=== PATIENT | male | born 1955 | race Caucasian/White ===

== ENCOUNTER 2016-09-08 14:46 | Emergency (ER) | payer MEDICARE ==
[~2016-09-08] VITALS: Ht 172.7 cm; Wt 81.4 kg
[~2016-09-08 14:46] MED LIST: ASPI-496 PO; ASPI-621 PO; DIGO125T PO; DIGO125T76 PO; DIGO250T PO; FAMO20TA7 PO; FURO20TA3 PO; FURO40TA6 PO; LISI-167 PO; METF500T4 PO; METO-99 PO; METO50TA82 PO; POTA8TAB PO; POTASSIUM; SIMV20TA3 PO; WARF10TA PO; WARF5TAB PO; WARF5TAB7 PO; WARF5TAB7 PO-COUM; WARF7.5T PO; lopressor PO
[2016-09-08] MEDS ORDERED: MORPHINE SULFATE 4 MG/ML, 1ML IVPush PRN (15:30)
[2016-09-08] MEDS ORDERED: SODIUM CHLORIDE FLUSH 10ML SYR IVF ONE (15:30)
[2016-09-08] MEDS ORDERED: ONDANSETRON 2MG/ML, 2ML IVPush ONE (15:30)
[2016-09-08 16:52] VITALS: BP 120/79
== END 2016-09-08 16:55 | disposition home or self-care (01) ==
LOC: ED 16:49
DX: K40.91 Unilateral inguinal hernia, without obstruction or gangrene, recurrent (principal); I11.0 Hypertensive heart disease with heart failure; I50.9 Heart failure, unspecified; E78.00 Pure hypercholesterolemia, unspecified; I25.10 Atherosclerotic heart disease of native coronary artery without angina pectoris; F17.200 Nicotine dependence, unspecified, uncomplicated
CPT/HCPCS: 76857; 99284

== ENCOUNTER 2017-02-25 10:18 | Inpatient (IN) | payer MEDICARE ==
[~2017-02-25] VITALS: Ht 172.7 cm; Wt 86.4 kg
[2017-02-25] MEDS ORDERED: WARF7.5T6 PO (10:41)
[2017-02-25] MEDS ORDERED: DIGO125T PO (10:42)
[2017-02-25] MEDS ORDERED: SODIUM CHLORIDE 0.9% 1,000 ML IV ONE ×2 (10:43→13:05)
[2017-02-25] MEDS ORDERED: FURO-92 PO (10:43)
[2017-02-25] MEDS ORDERED: SODIUM CHLORIDE 0.9% 1,000ML IVBOLUS ONE (11:00)
[2017-02-25] MEDS ORDERED: SODIUM CHLORIDE FLUSH 10ML SYR IVF ONE (11:00)
[2017-02-25 11:04] LABS: HEMATOCRIT 34.6 % (39.2-51.8); HEMOGLOBIN 11.7 g/dL (13.7-18.0)
[2017-02-25 11:17] LABS: BLOOD UREA NITROGEN 26 mg/dL (7-18)
[2017-02-25 11:20] LABS: ASPARTATE AMINO TRANSFERASE 13 U/L (15-37)
[2017-02-25 11:51] VITALS: BP 125/70
[2017-02-25 12:06] VITALS: BP 121/67
[2017-02-25 12:15] VITALS: BP 121/68
[2017-02-25] MEDS ORDERED: BISACODYL 10 MG SUPP PR PRN ×2 (13:30→20:30)
[2017-02-25] MEDS ORDERED: POLYETHYLENE GLYCOL 17 GM PACKET PO PRN ×2 (13:30→20:30)
[2017-02-25] MEDS ORDERED: LABETALOL 5MG/ML, 20ML IVPush PRN ×2 (13:30→20:30)
[2017-02-25] MEDS ORDERED: ONDANSETRON 2MG/ML, 2ML IVPush PRN ×2 (13:30→20:30)
[2017-02-25] MEDS ORDERED: ONDANSETRON ODT 4 MG PO PRN ×2 (13:30→20:30)
[2017-02-25] MEDS ORDERED: ACETAMINOPHEN 325 MG TABLET PO PRN ×2 (13:30→20:30)
[2017-02-25] MEDS ORDERED: SODIUM CHLORIDE FLUSH 10ML SYR IVF PRN (13:30)
[2017-02-25] MEDS ORDERED: morphine SULFATE 10 MG/ML, 1ML IVPush PRN (13:30)
[2017-02-25 15:30] VITALS: BP 153/82
[2017-02-25] MEDS ORDERED: GOLYTELY 4,000ML ORAL.SOL PO ONE (18:00)
[2017-02-25] MEDS: PANTOPRAZOLE 40 MG IV IVPush SCH (18:03)
[2017-02-25 18:29] VITALS: BP 110/64
[2017-02-25] MEDS: DIGOXIN 0.125 MG TABLET PO SCH (19:05)
[2017-02-25 19:08] LABS: HEMATOCRIT 32.5 % (39.2-51.8); HEMOGLOBIN 10.9 g/dL (13.7-18.0)
[2017-02-25] MEDS ORDERED: DOCUSATE 100 MG CAPSULE PO PRN ×2 (20:30→21:00)
[2017-02-26] VITALS (7 sets, daily range): BP systolic 112–134; BP diastolic 66–81
[2017-02-26 03:21] LABS: HEMATOCRIT 32.4 % (39.2-51.8); HEMOGLOBIN 10.8 g/dL (13.7-18.0); WHITE BLOOD COUNT 7.4 x10^3/uL (3.4-10)
[2017-02-26 03:34] LABS: ASPARTATE AMINO TRANSFERASE 12 U/L (15-37); BLOOD UREA NITROGEN 19 mg/dL (7-18)
[2017-02-26] MEDS: PANTOPRAZOLE 40 MG IV IVPush SCH ×2 (05:38→18:19)
[2017-02-26] MEDS ORDERED: FENTANYL PF 100 MCG/2ML ONE ×2 (08:53)
[2017-02-26] MEDS ORDERED: MIDAZOLAM 1 MG/ML, 5ML ONE (08:53)
[2017-02-26] MEDS ORDERED: FUROSEMIDE 40 MG TABLET PO SCH (09:00)
[2017-02-26] MEDS ORDERED: METOPROLOL TARTRATE 100 MG TABLET PO SCH ×2 (09:00)
[2017-02-26] MEDS: FUROSEMIDE 40 MG TABLET PO SCH (10:25)
[2017-02-26 11:10] LABS: HEMATOCRIT 32.8 % (39.2-51.8); HEMOGLOBIN 11.1 g/dL (13.7-18.0)
[2017-02-26] MEDS ORDERED: GOLYTELY 4,000ML ORAL.SOL PO ONE (18:00)
[2017-02-26] MEDS: DIGOXIN 0.125 MG TABLET PO SCH (18:19)
[2017-02-26 19:04] LABS: HEMATOCRIT 33.4 % (39.2-51.8); HEMOGLOBIN 11.2 g/dL (13.7-18.0)
[2017-02-27 02:31] VITALS: BP 109/59
[2017-02-27] MEDS: PANTOPRAZOLE 40 MG IV IVPush SCH ×2 (04:51→17:55)
[2017-02-27 06:03] LABS: HEMATOCRIT 31.7 % (39.2-51.8); HEMOGLOBIN 10.9 g/dL (13.7-18.0); WHITE BLOOD COUNT 5.9 x10^3/uL (3.4-10)
[2017-02-27 08:00] VITALS: BP 134/73
[2017-02-27] MEDS: METOPROLOL TARTRATE 100 MG TABLET PO SCH (08:13)
[2017-02-27] MEDS: FUROSEMIDE 40 MG TABLET PO SCH (08:19)
[2017-02-27] MEDS ORDERED: FENTANYL PF 100 MCG/2ML ONE (08:33)
[2017-02-27] MEDS ORDERED: MIDAZOLAM 1 MG/ML, 5ML ONE (08:33)
[2017-02-27 10:25] VITALS: BP 113/68
[2017-02-27] MEDS: DIGOXIN 0.125 MG TABLET PO SCH (17:55)
[2017-02-27 19:05] VITALS: BP 125/73
[2017-02-28 01:23] VITALS: BP 133/86
[2017-02-28] MEDS: PANTOPRAZOLE 40 MG IV IVPush SCH (05:29)
[2017-02-28 08:31] VITALS: BP 113/67
[2017-02-28] MEDS: FUROSEMIDE 40 MG TABLET PO SCH (09:00)
[2017-02-28] MEDS: METOPROLOL TARTRATE 100 MG TABLET PO SCH (09:00)
[2017-02-28] MEDS ORDERED: WARF10TA PO-COUM (13:09)
[2017-02-28 15:47] VITALS: BP 120/72
[2017-02-28] MEDS ORDERED: WARFARIN 10 MG TABLET PO-COUM ONE (18:00)
== END 2017-02-28 17:00 | disposition home or self-care (01) | DRG 378 ==
LOC: ED 11:22 → EDIP 13:05 → 4WST 14:25 → DCLOUNGE 02-28 17:00
PROVIDERS: ADMIT Hospitalist; ATTEND Hospitalist
PROC: 30233L1 Transfusion of Nonautologous Fresh Plasma into Peripheral Vein, Percutaneous Approach (ICD-10-PCS; 2017-02-25)
PROC: 0DJD8ZZ Inspection of Lower Intestinal Tract, Via Natural or Artificial Opening Endoscopic (ICD-10-PCS; principal; 2017-02-26 09:00)
PROC: 0DBH8ZZ Excision of Cecum, Via Natural or Artificial Opening Endoscopic (ICD-10-PCS; 2017-02-27)
PROC: 0DBL8ZZ Excision of Transverse Colon, Via Natural or Artificial Opening Endoscopic (ICD-10-PCS; 2017-02-27)
PROC: 0DBN8ZZ Excision of Sigmoid Colon, Via Natural or Artificial Opening Endoscopic (ICD-10-PCS; 2017-02-27)
PROC: 0DBM8ZZ Excision of Descending Colon, Via Natural or Artificial Opening Endoscopic (ICD-10-PCS; 2017-02-27)
DX: K92.2 Gastrointestinal hemorrhage, unspecified (principal); E44.0 Moderate protein-calorie malnutrition; D68.69 Other thrombophilia; I13.0 Hypertensive heart and chronic kidney disease with heart failure and stage 1 through stage 4 chronic kidney disease, or unspecified chronic kidney disease; I48.2 Chronic atrial fibrillation; I95.9 Hypotension, unspecified; I50.42 Chronic combined systolic (congestive) and diastolic (congestive) heart failure; I48.92 Unspecified atrial flutter; E78.5 Hyperlipidemia, unspecified; E78.00 Pure hypercholesterolemia, unspecified; G25.81 Restless legs syndrome; K40.90 Unilateral inguinal hernia, without obstruction or gangrene, not specified as recurrent; Z66 Do not resuscitate; D64.9 Anemia, unspecified; R79.89 Other specified abnormal findings of blood chemistry; D12.4 Benign neoplasm of descending colon; F15.90 Other stimulant use, unspecified, uncomplicated; N18.9 Chronic kidney disease, unspecified; I25.10 Atherosclerotic heart disease of native coronary artery without angina pectoris; I34.0 Nonrheumatic mitral (valve) insufficiency; K57.90 Diverticulosis of intestine, part unspecified, without perforation or abscess without bleeding; T45.515A Adverse effect of anticoagulants, initial encounter; Y92.89 Other specified places as the place of occurrence of the external cause; Z79.82 Long term (current) use of aspirin; Z68.29 Body mass index [BMI] 29.0-29.9, adult; Z79.01 Long term (current) use of anticoagulants; D12.0 Benign neoplasm of cecum; K63.5 Polyp of colon
CPT/HCPCS: 36415; 71010; 80053; 80162; 83605; 85014; 85018; 85025; 85610; 85730; 86850; 86900; 88305; 93005; 99152; 99153; J2250; J3010; A4648; C9113; J7030; P9017

== ENCOUNTER 2017-04-25 20:33 | Inpatient (IN) | payer MEDICARE ==
[~2017-04-25] VITALS: Ht 175.3 cm; Wt 73.6 kg
[~2017-04-25 20:33] MED LIST changes: +FURO-92 PO; +WARF10TA PO-COUM; +WARF7.5T6 PO
[2017-04-25 21:35] LABS: BASOPHILS # (AUTO) 0.01 x10^3/uL (0-0.1); BASOPHILS % (AUTO) 0 % (0-1); EOSINOPHILS # (AUTO) 0.07 x10^3/uL (0-0.4); EOSINOPHILS % (AUTO) 1 % (1-7); LYMPHOCYTES # (AUTO) 0.41 x10^3/uL (1-3.4); LYMPHOCYTES % (AUTO) 5 % (22-44); MD NO; MEAN CORPUSCULAR HEMOGLOBIN 28.4 pg (27.5-34.5); MEAN CORPUSCULAR HGB CONC 32.5 g/dL (33.2-36.2); MEAN CORPUSCULAR VOLUME 87.3 fL (81-97); MEAN PLATELET VOLUME 8.2 fL (7.4-10.4); MONOCYTES # (AUTO) 0.74 x10^3/uL (0.2-0.8); MONOCYTES % (AUTO) 9 % (2-9); NEUTROPHILS # (AUTO) 7.17 x10^3/uL (1.8-6.8); NEUTROPHILS % (AUTO) 85 % (42-75); PLATELET COUNT 295 x10^3/uL (130-400); RED BLOOD COUNT 4.14 x10^6/uL (4.38-5.82); RED CELL DISTRIBUTION WIDTH 15.6 % (9.4-14.8)
[2017-04-25 21:45] LABS: ALANINE AMINOTRANSFERASE 32 U/L (12-78); ALBUMIN 3.4 g/dL (3.4-5.0); ANION GAP 7 mmol/L (5-15); CALCIUM 8.7 mg/dL (8.5-10.1); CHLORIDE 110 mmol/L (98-107); CREATININE 2.52 mg/dL (0.7-1.3)
[2017-04-25 21:47] LABS: ALKALINE PHOSPHATASE 120 U/L (45-117); BILIRUBIN,TOTAL 0.5 mg/dL (0.2-1.0); TOTAL PROTEIN 7.6 g/dL (6.4-8.2)
[2017-04-25] MEDS ORDERED: SODIUM CHLORIDE FLUSH 10ML SYR IVF ONE (22:00)
[2017-04-26] VITALS (18 sets, daily range): BP systolic 95–118; BP diastolic 58–82
[2017-04-26 00:10] LABS: PROTHROMBIN TIME 56.1 Seconds (9.6-11.5)
[2017-04-26 00:11] LABS: INTERNATIONAL NORMALIZED RATIO 5.63 (0.93-1.1)
[2017-04-26 04:30] LABS: CULTURE INDICATED? YES; MICROSCOPIC INDICATED
[2017-04-26] MEDS ORDERED: DOCUSATE 100 MG CAPSULE PO PRN (04:30)
[2017-04-26] MEDS ORDERED: DIGOXIN 0.125 MG TABLET PO SCH (04:30)
[2017-04-26] MEDS ORDERED: ONDANSETRON ODT 4 MG PO PRN (04:30)
[2017-04-26] MEDS ORDERED: ONDANSETRON 2MG/ML, 2ML IVPush PRN (04:30)
[2017-04-26] MEDS ORDERED: METOPROLOL TARTRATE 25 MG TABLET PO SCH (04:30)
[2017-04-26] MEDS ORDERED: PROMETHAZINE 25 MG/ML, 1ML IM PRN (04:30)
[2017-04-26] MEDS ORDERED: ACETAMINOPHEN 325 MG TABLET PO PRN (04:30)
[2017-04-26 04:40] LABS: AMPHETAMINE SCREEN, URINE Negative (Negative); BARBITURATE SCREEN, URINE Negative (Negative); BENZODIAZEPINE SCREEN, URINE Negative (Negative); CANNABINOID SCREEN, URINE Positive (Negative); COCAINE SCREEN, URINE Negative (Negative); METHADONE SCREEN, URINE Negative (Negative); OPIATE SCREEN, URINE Negative (Negative)
[2017-04-26] MEDS ORDERED: ASPIRIN 325 MG TABLET EC PO SCH (06:00)
[2017-04-26] MEDS ORDERED: ASPIRIN 81 MG TABLET EC PO SCH (06:00)
[2017-04-26] MEDS: SODIUM CHLORIDE 0.9% 1,000 ML IV SCH (06:24)
[2017-04-26] MEDS: INSULIN ASPART 100 UNITS/ML, PEN SQ-INSULIN SCH ×4 (07:00→21:00)
[2017-04-26 07:08] LABS: BASOPHILS # (AUTO) 0.02 x10^3/uL (0-0.1); BASOPHILS % (AUTO) 0 % (0-1); EOSINOPHILS # (AUTO) 0.18 x10^3/uL (0-0.4); EOSINOPHILS % (AUTO) 3 % (1-7); LYMPHOCYTES # (AUTO) 0.47 x10^3/uL (1-3.4); LYMPHOCYTES % (AUTO) 9 % (22-44); MD NO; MEAN CORPUSCULAR HEMOGLOBIN 28.4 pg (27.5-34.5); MEAN CORPUSCULAR VOLUME 86.2 fL (81-97); MONOCYTES # (AUTO) 0.57 x10^3/uL (0.2-0.8); MONOCYTES % (AUTO) 11 % (2-9); NEUTROPHILS # (AUTO) 4.25 x10^3/uL (1.8-6.8); NEUTROPHILS % (AUTO) 77 % (42-75); PLATELET COUNT 219 x10^3/uL (130-400); RED BLOOD COUNT 3.56 x10^6/uL (4.38-5.82); RED CELL DISTRIBUTION WIDTH 15.5 % (9.4-14.8)
[2017-04-26 07:20] LABS: ALANINE AMINOTRANSFERASE 25 U/L (12-78); ANION GAP 10 mmol/L (5-15); CALCIUM 8.2 mg/dL (8.5-10.1); CHLORIDE 114 mmol/L (98-107); CREATININE 1.67 mg/dL (0.7-1.3)
[2017-04-26 07:22] LABS: ALKALINE PHOSPHATASE 97 U/L (45-117); BILIRUBIN,TOTAL 0.4 mg/dL (0.2-1.0)
[2017-04-26] MEDS: POTASSIUM CHLORIDE 8 MEQ TABLET.ER PO SCH (09:00)
[2017-04-26] MEDS ORDERED: METOPROLOL TARTRATE 100 MG TABLET PO SCH (09:00)
[2017-04-26] MEDS ORDERED: POTASSIUM PHOSPHATE 22 MEQ in SODIUM CHLORIDE 0.9% 500 ML IV ONE (09:30)
[2017-04-26 10:50] LABS: INTERNATIONAL NORMALIZED RATIO 2.86 (0.93-1.1); PROTHROMBIN TIME 28.9 Seconds (9.6-11.5)
[2017-04-26] MEDS ORDERED: PHYTONADIONE 10 MG/ML, 1ML SQ ONE (14:30)
[2017-04-26 21:29] LABS: INTERNATIONAL NORMALIZED RATIO 2.26 (0.93-1.1); PROTHROMBIN TIME 22.9 Seconds (9.6-11.5)
[2017-04-27] VITALS (9 sets, daily range): BP systolic 98–114; BP diastolic 66–84
[2017-04-27] MEDS: SODIUM CHLORIDE 0.9% 1,000 ML IV SCH ×2 (02:00→07:31)
[2017-04-27 05:41] LABS: BASOPHILS # (AUTO) 0.02 x10^3/uL (0-0.1); BASOPHILS % (AUTO) 1 % (0-1); EOSINOPHILS # (AUTO) 0.16 x10^3/uL (0-0.4); EOSINOPHILS % (AUTO) 3 % (1-7); LYMPHOCYTES # (AUTO) 0.79 x10^3/uL (1-3.4); LYMPHOCYTES % (AUTO) 16 % (22-44); MD NO; MEAN CORPUSCULAR HEMOGLOBIN 29.2 pg (27.5-34.5); MEAN CORPUSCULAR HGB CONC 33.8 g/dL (33.2-36.2); MEAN CORPUSCULAR VOLUME 86.4 fL (81-97); MEAN PLATELET VOLUME 8.3 fL (7.4-10.4); MONOCYTES # (AUTO) 0.64 x10^3/uL (0.2-0.8); MONOCYTES % (AUTO) 13 % (2-9); NEUTROPHILS # (AUTO) 3.34 x10^3/uL (1.8-6.8); NEUTROPHILS % (AUTO) 68 % (42-75); PLATELET COUNT 246 x10^3/uL (130-400); RED BLOOD COUNT 3.71 x10^6/uL (4.38-5.82); RED CELL DISTRIBUTION WIDTH 15.1 % (9.4-14.8)
[2017-04-27 05:43] LABS: INTERNATIONAL NORMALIZED RATIO 1.81 (0.93-1.1); PROTHROMBIN TIME 18.4 Seconds (9.6-11.5)
[2017-04-27 05:50] LABS: ALBUMIN 3.6 g/dL (3.4-5.0); CALCIUM 8.4 mg/dL (8.5-10.1); CHLORIDE 112 mmol/L (98-107)
[2017-04-27 05:56] LABS: ALANINE AMINOTRANSFERASE 24 U/L (12-78); ALKALINE PHOSPHATASE 115 U/L (45-117); ANION GAP 6 mmol/L (5-15); BILIRUBIN,TOTAL 0.6 mg/dL (0.2-1.0); CREATININE 1.34 mg/dL (0.7-1.3); TOTAL PROTEIN 7.8 g/dL (6.4-8.2)
[2017-04-27] MEDS: INSULIN ASPART 100 UNITS/ML, PEN SQ-INSULIN SCH ×4 (07:00→20:47)
[2017-04-27] MEDS: METOPROLOL TARTRATE 100 MG TABLET PO SCH (07:30)
[2017-04-27] MEDS: POTASSIUM CHLORIDE 8 MEQ TABLET.ER PO SCH (07:30)
[2017-04-27] MEDS: TAMSULOSIN 0.4 MG CAP.ER.24H PO SCH (07:30)
[2017-04-27] MEDS ORDERED: POTASSIUM PHOSPHATE 22 MEQ in SODIUM CHLORIDE 0.9% 500 ML IV ONE (09:30)
[2017-04-27] MEDS ORDERED: DILTIAZEM 5 MG/ML, 5ML IVPush ONE (10:30)
[2017-04-27] MEDS ORDERED: MAGNESIUM SULFATE PMX 2GM/50ML 50 ML IV ONE (10:30)
[2017-04-27 21:13] LABS: INTERNATIONAL NORMALIZED RATIO 1.22 (0.93-1.1); PROTHROMBIN TIME 12.5 Seconds (9.6-11.5)
[2017-04-28 02:00] VITALS: BP 118/74
[2017-04-28 06:03] LABS: INTERNATIONAL NORMALIZED RATIO 1.14 (0.93-1.1); PROTHROMBIN TIME 11.7 Seconds (9.6-11.5)
[2017-04-28 06:06] LABS: BASOPHILS # (AUTO) 0.02 x10^3/uL (0-0.1); BASOPHILS % (AUTO) 0 % (0-1); EOSINOPHILS # (AUTO) 0.17 x10^3/uL (0-0.4); EOSINOPHILS % (AUTO) 3 % (1-7); LYMPHOCYTES # (AUTO) 0.83 x10^3/uL (1-3.4); LYMPHOCYTES % (AUTO) 15 % (22-44); MD NO; MEAN CORPUSCULAR HGB CONC 33.5 g/dL (33.2-36.2); MEAN CORPUSCULAR VOLUME 86.6 fL (81-97); MEAN PLATELET VOLUME 8.4 fL (7.4-10.4); MONOCYTES # (AUTO) 0.65 x10^3/uL (0.2-0.8); MONOCYTES % (AUTO) 12 % (2-9); NEUTROPHILS # (AUTO) 3.97 x10^3/uL (1.8-6.8); NEUTROPHILS % (AUTO) 70 % (42-75); PLATELET COUNT 229 x10^3/uL (130-400); RED BLOOD COUNT 3.67 x10^6/uL (4.38-5.82); RED CELL DISTRIBUTION WIDTH 15.5 % (9.4-14.8)
[2017-04-28 06:12] LABS: CHLORIDE 109 mmol/L (98-107)
[2017-04-28 06:17] LABS: ANION GAP 4 mmol/L (5-15); CALCIUM 8.5 mg/dL (8.5-10.1); CREATININE 1.13 mg/dL (0.7-1.3)
[2017-04-28] MEDS: INSULIN ASPART 100 UNITS/ML, PEN SQ-INSULIN SCH ×4 (07:00→21:00)
[2017-04-28 08:00] VITALS: BP 155/87
[2017-04-28 08:50] VITALS: BP 130/82
[2017-04-28] MEDS: TAMSULOSIN 0.4 MG CAP.ER.24H PO SCH (11:15)
[2017-04-28] MEDS: METOPROLOL TARTRATE 100 MG TABLET PO SCH (11:15)
[2017-04-28] MEDS: POTASSIUM CHLORIDE 8 MEQ TABLET.ER PO SCH (11:15)
[2017-04-28] MEDS ORDERED: DILTIAZEM 5 MG/ML, 5ML IVPush ONE (12:30)
[2017-04-28] MEDS ORDERED: SODIUM CHLORIDE 0.9%, 500ML IVBOLUS ONE (12:30)
[2017-04-28] MEDS ORDERED: DIGOXIN 0.25 MG/ML, 2ML IVPush ONE (12:30)
[2017-04-28 12:52] VITALS: BP 115/72
[2017-04-28] MEDS ORDERED: DEXAMETHASONE 4 MG/ML, 1ML ONE (17:53)
[2017-04-28] MEDS ORDERED: ONDANSETRON 2MG/ML, 2ML ONE (17:53)
[2017-04-28] MEDS ORDERED: NEOSTIGMINE 1 MG/ML, 10ML ONE (17:53)
[2017-04-28] MEDS ORDERED: ROCURONIUM 10 MG/ML,10ML ONE (17:53)
[2017-04-28] MEDS ORDERED: MIDAZOLAM 1 MG/ML, 2ML ONE ×2 (17:53→18:39)
[2017-04-28] MEDS ORDERED: FENTANYL PF 250 MCG/5ML ONE (17:53)
[2017-04-28] MEDS ORDERED: PROPOFOL 10 MG/ML, 20ML ONE (17:53)
[2017-04-28] MEDS ORDERED: CEFAZOLIN 1,000 MG ONE (17:53)
[2017-04-28] MEDS ORDERED: GLYCOPYRROLATE 0.2MG/1ML, 5ML ONE (17:53)
[2017-04-28] MEDS ORDERED: SUCCINYLCHOLINE 20 MG/ML, 10ML ONE (17:53)
[2017-04-28] MEDS ORDERED: LIDOCAINE GEL 2%, 5ML ONE (17:54)
[2017-04-28] MEDS ORDERED: BUPIVACAINE/PF 0.5% ONE (18:06)
[2017-04-28] MEDS ORDERED: EPINEPHRINE 1 MG/ML, 1ML ONE (18:06)
[2017-04-28] MEDS ORDERED: PHENYLEPHRINE 10 MG/ML ONE (18:39)
[2017-04-28] MEDS ORDERED: ALBUTEROL/IPRATROPIUM 2.5MG/0.5MG, 3 ML NPPB PRN (19:00)
[2017-04-28] MEDS ORDERED: ACETAMINOPHEN 325 MG TABLET PO PRN (19:00)
[2017-04-28] MEDS ORDERED: PROMETHAZINE 25 MG/ML, 1ML IV PRN (19:00)
[2017-04-28] MEDS ORDERED: HYDROmorphone 1 MG/ML, 1ML IV PRN (19:00)
[2017-04-28] MEDS ORDERED: OXYcodone 5 MG/5 ML ORAL.SOL UDC PO PRN (19:00)
[2017-04-28] MEDS ORDERED: FENTANYL PF 100 MCG/2ML IV PRN (19:00)
[2017-04-28] MEDS ORDERED: hydrALAzine 20 MG/ML, 1ML IV PRN (19:00)
[2017-04-28] MEDS ORDERED: LABETALOL 5MG/ML, 20ML IV PRN (19:00)
[2017-04-28] MEDS ORDERED: MIDAZOLAM 1 MG/ML, 2ML IV PRN (19:00)
[2017-04-28] MEDS ORDERED: ONDANSETRON 2MG/ML, 2ML IVPush PRN (19:00)
[2017-04-28] MEDS ORDERED: EPINEPHRINE 1 MG/ML, 1ML INFIL ONE (19:06)
[2017-04-28] MEDS ORDERED: BUPIVACAINE/PF 0.5% INFIL ONE (19:06)
[2017-04-28] MEDS ORDERED: ACETAMINOPHEN 650 MG/20.3 ML UDC ONE (20:36)
[2017-04-28] MEDS ORDERED: OXYcodone 5 MG/5 ML ORAL.SOL UDC ONE (20:36)
[2017-04-28] MEDS ORDERED: morphine SULFATE 10 MG/ML, 1ML IVPush PRN (22:00)
[2017-04-29 01:53] VITALS: BP 112/79
[2017-04-29 05:10] LABS: INTERNATIONAL NORMALIZED RATIO 1.12 (0.93-1.1); PROTHROMBIN TIME 11.5 Seconds (9.6-11.5)
[2017-04-29 05:18] LABS: CHLORIDE 110 mmol/L (98-107)
[2017-04-29 05:26] LABS: BASOPHILS % (AUTO) 0 % (0-1); EOSINOPHILS % (AUTO) 0 % (1-7); LYMPHOCYTES # (AUTO) 0.36 x10^3/uL (1-3.4); LYMPHOCYTES % (AUTO) 4 % (22-44); MD NO; MEAN CORPUSCULAR HEMOGLOBIN 28.3 pg (27.5-34.5); MEAN CORPUSCULAR HGB CONC 32.7 g/dL (33.2-36.2); MEAN CORPUSCULAR VOLUME 86.5 fL (81-97); MEAN PLATELET VOLUME 8.3 fL (7.4-10.4); MONOCYTES # (AUTO) 0.55 x10^3/uL (0.2-0.8); MONOCYTES % (AUTO) 5 % (2-9); NEUTROPHILS # (AUTO) 9.37 x10^3/uL (1.8-6.8); NEUTROPHILS % (AUTO) 91 % (42-75); PLATELET COUNT 225 x10^3/uL (130-400); RED BLOOD COUNT 3.79 x10^6/uL (4.38-5.82); RED CELL DISTRIBUTION WIDTH 15.4 % (9.4-14.8)
[2017-04-29 05:27] LABS: ANION GAP 9 mmol/L (5-15); CALCIUM 8.1 mg/dL (8.5-10.1)
[2017-04-29 07:03] VITALS: BP 113/76
[2017-04-29] MEDS: TAMSULOSIN 0.4 MG CAP.ER.24H PO SCH (08:50)
[2017-04-29] MEDS: POTASSIUM CHLORIDE 8 MEQ TABLET.ER PO SCH (08:50)
[2017-04-29] MEDS: METOPROLOL TARTRATE 100 MG TABLET PO SCH (08:50)
[2017-04-29] MEDS: INSULIN ASPART 100 UNITS/ML, PEN SQ-INSULIN SCH ×4 (08:50→20:16)
[2017-04-29 10:34] LABS: TROPONIN I < 0.015 ng/mL (0.000-0.045)
[2017-04-29 12:24] VITALS: BP 118/56
[2017-04-29] MEDS: OXYcodone/APAP 7.5/325MG TABLET PO PRN ×2 (12:51→21:32)
[2017-04-29] MEDS ORDERED: SODIUM CHLORIDE 0.9% 1,000 ML IV SCH (16:30)
[2017-04-29] MEDS ORDERED: DIGOXIN 0.125 MG TABLET PO SCH (17:00)
[2017-04-29 21:29] VITALS: BP 104/62
[2017-04-30 01:18] VITALS: BP 105/69
[2017-04-30 03:59] LABS: BASOPHILS # (AUTO) 0.06 x10^3/uL (0-0.1); BASOPHILS % (AUTO) 1 % (0-1); EOSINOPHILS # (AUTO) 0.14 x10^3/uL (0-0.4); EOSINOPHILS % (AUTO) 2 % (1-7); LYMPHOCYTES # (AUTO) 0.72 x10^3/uL (1-3.4); LYMPHOCYTES % (AUTO) 11 % (22-44); MD NO; MEAN CORPUSCULAR HGB CONC 33.2 g/dL (33.2-36.2); MEAN CORPUSCULAR VOLUME 87.2 fL (81-97); MEAN PLATELET VOLUME 8.1 fL (7.4-10.4); MONOCYTES # (AUTO) 0.69 x10^3/uL (0.2-0.8); MONOCYTES % (AUTO) 10 % (2-9); NEUTROPHILS % (AUTO) 76 % (42-75); PLATELET COUNT 196 x10^3/uL (130-400); RED BLOOD COUNT 3.46 x10^6/uL (4.38-5.82); RED CELL DISTRIBUTION WIDTH 15.3 % (9.4-14.8)
[2017-04-30 04:00] LABS: ANION GAP 7 mmol/L (5-15); CALCIUM 7.5 mg/dL (8.5-10.1); CHLORIDE 108 mmol/L (98-107); CREATININE 1.23 mg/dL (0.7-1.3)
[2017-04-30] MEDS: INSULIN ASPART 100 UNITS/ML, PEN SQ-INSULIN SCH ×4 (07:00→22:10)
[2017-04-30 07:48] VITALS: BP 130/71
[2017-04-30] MEDS ORDERED: MAGNESIUM SULFATE PMX 2GM/50ML 50 ML IV ONE (08:30)
[2017-04-30] MEDS: TAMSULOSIN 0.4 MG CAP.ER.24H PO SCH (09:07)
[2017-04-30] MEDS: POTASSIUM CHLORIDE 8 MEQ TABLET.ER PO SCH (09:07)
[2017-04-30] MEDS: METOPROLOL TARTRATE 25 MG TABLET PO SCH ×2 (09:07→22:09)
[2017-04-30 11:55] VITALS: BP 117/69
[2017-04-30 15:33] VITALS: BP 118/72
[2017-04-30] MEDS: OXYcodone/APAP 7.5/325MG TABLET PO PRN (18:44)
[2017-04-30] MEDS: DIGOXIN 0.25 MG TABLET PO SCH (18:44)
[2017-04-30 19:25] VITALS: BP 125/76
[2017-05-01 00:49] VITALS: BP 120/72
[2017-05-01 05:56] LABS: BASOPHILS # (AUTO) 0.05 x10^3/uL (0-0.1); BASOPHILS % (AUTO) 1 % (0-1); EOSINOPHILS # (AUTO) 0.38 x10^3/uL (0-0.4); EOSINOPHILS % (AUTO) 5 % (1-7); LYMPHOCYTES # (AUTO) 0.79 x10^3/uL (1-3.4); LYMPHOCYTES % (AUTO) 11 % (22-44); MD NO; MEAN CORPUSCULAR HEMOGLOBIN 29.1 pg (27.5-34.5); MEAN CORPUSCULAR HGB CONC 33.3 g/dL (33.2-36.2); MEAN CORPUSCULAR VOLUME 87.4 fL (81-97); MEAN PLATELET VOLUME 8.4 fL (7.4-10.4); MONOCYTES % (AUTO) 11 % (2-9); NEUTROPHILS # (AUTO) 5.48 x10^3/uL (1.8-6.8); NEUTROPHILS % (AUTO) 73 % (42-75); PLATELET COUNT 217 x10^3/uL (130-400); RED BLOOD COUNT 3.55 x10^6/uL (4.38-5.82); RED CELL DISTRIBUTION WIDTH 15.1 % (9.4-14.8)
[2017-05-01 06:06] LABS: CHLORIDE 107 mmol/L (98-107)
[2017-05-01 06:35] LABS: ANION GAP 9 mmol/L (5-15); CALCIUM 8.1 mg/dL (8.5-10.1); CREATININE 1.04 mg/dL (0.7-1.3)
[2017-05-01] MEDS: INSULIN ASPART 100 UNITS/ML, PEN SQ-INSULIN SCH ×4 (07:00→21:00)
[2017-05-01 07:54] VITALS: BP 111/79
[2017-05-01] MEDS: TAMSULOSIN 0.4 MG CAP.ER.24H PO SCH (08:20)
[2017-05-01] MEDS: POTASSIUM CHLORIDE 8 MEQ TABLET.ER PO SCH (08:20)
[2017-05-01] MEDS: METOPROLOL TARTRATE 25 MG TABLET PO SCH (08:27)
[2017-05-01] MEDS ORDERED: PHARMACOKINETIC MONITORING MC PRN (10:30)
[2017-05-01] MEDS ORDERED: VANCOMYCIN PER PHARMACY MC PRN (10:30)
[2017-05-01] MEDS: VANCOMYCIN 1,600 MG in SODIUM CHLORIDE 0.9% 250 ML IV SCH (11:57)
[2017-05-01 14:14] VITALS: BP 118/66
[2017-05-01] MEDS: DIGOXIN 0.25 MG TABLET PO SCH (16:37)
[2017-05-01] MEDS: OXYcodone/APAP 7.5/325MG TABLET PO PRN (16:41)
[2017-05-01 19:17] VITALS: BP 107/67
[2017-05-01] MEDS: METOPROLOL TARTRATE 100 MG TABLET PO SCH (20:01)
[2017-05-02 01:37] VITALS: BP 101/54
[2017-05-02] MEDS: OXYcodone/APAP 7.5/325MG TABLET PO PRN (03:46)
[2017-05-02 04:37] LABS: BASOPHILS # (AUTO) 0.01 x10^3/uL (0-0.1); BASOPHILS % (AUTO) 0 % (0-1); EOSINOPHILS # (AUTO) 0.45 x10^3/uL (0-0.4); EOSINOPHILS % (AUTO) 7 % (1-7); LYMPHOCYTES % (AUTO) 10 % (22-44); MD NO; MEAN CORPUSCULAR HEMOGLOBIN 28.4 pg (27.5-34.5); MEAN CORPUSCULAR HGB CONC 32.8 g/dL (33.2-36.2); MEAN CORPUSCULAR VOLUME 86.6 fL (81-97); MONOCYTES # (AUTO) 0.65 x10^3/uL (0.2-0.8); MONOCYTES % (AUTO) 9 % (2-9); NEUTROPHILS # (AUTO) 5.08 x10^3/uL (1.8-6.8); NEUTROPHILS % (AUTO) 74 % (42-75); PLATELET COUNT 226 x10^3/uL (130-400); RED BLOOD COUNT 3.43 x10^6/uL (4.38-5.82); RED CELL DISTRIBUTION WIDTH 15.6 % (9.4-14.8)
[2017-05-02 04:49] LABS: ANION GAP 4 mmol/L (5-15); CALCIUM 8.3 mg/dL (8.5-10.1); CHLORIDE 109 mmol/L (98-107); CREATININE 0.93 mg/dL (0.7-1.3)
[2017-05-02] MEDS: VANCOMYCIN 1,600 MG in SODIUM CHLORIDE 0.9% 250 ML IV SCH ×2 (05:00→22:03)
[2017-05-02] MEDS ORDERED: MIDAZOLAM 1 MG/ML, 2ML ONE (06:40)
[2017-05-02] MEDS ORDERED: FENTANYL PF 100 MCG/2ML ONE (06:40)
[2017-05-02] MEDS ORDERED: DEXAMETHASONE 4 MG/ML, 1ML ONE (06:43)
[2017-05-02] MEDS ORDERED: PROPOFOL 10 MG/ML, 20ML ONE (06:43)
[2017-05-02] MEDS ORDERED: CEFAZOLIN 1,000 MG ONE (06:43)
[2017-05-02] MEDS ORDERED: ONDANSETRON 2MG/ML, 2ML ONE (06:43)
[2017-05-02] MEDS ORDERED: BUPIVACAINE/PF 0.5% ONE (06:48)
[2017-05-02] MEDS: INSULIN ASPART 100 UNITS/ML, PEN SQ-INSULIN SCH (07:00)
[2017-05-02] MEDS ORDERED: HYDROmorphone 1 MG/ML, 1ML IV PRN (07:30)
[2017-05-02] MEDS ORDERED: MEPERIDINE/PF 25MG/0.5ML IVPush PRN (07:30)
[2017-05-02] MEDS ORDERED: OXYcodone 5 MG/5 ML ORAL.SOL UDC PO PRN (07:30)
[2017-05-02] MEDS ORDERED: ONDANSETRON 2MG/ML, 2ML IVPush PRN (07:30)
[2017-05-02] MEDS ORDERED: LORazepam 2 MG/ML, 1ML IVPush PRN (07:30)
[2017-05-02] MEDS ORDERED: LABETALOL 5MG/ML, 20ML IV PRN (07:30)
[2017-05-02] MEDS ORDERED: hydrALAzine 20 MG/ML, 1ML IV PRN (07:30)
[2017-05-02] MEDS ORDERED: ACETAMINOPHEN 325 MG TABLET PO PRN (07:30)
[2017-05-02] MEDS ORDERED: DIAZEPAM 5 MG/ML, 2ML IVPush PRN (07:30)
[2017-05-02] MEDS ORDERED: PROMETHAZINE 25 MG/ML, 1ML IV PRN (07:30)
[2017-05-02] MEDS ORDERED: MIDAZOLAM 1 MG/ML, 2ML IV PRN (07:30)
[2017-05-02] MEDS ORDERED: ALBUTEROL/IPRATROPIUM 2.5MG/0.5MG, 3 ML NPPB PRN (07:30)
[2017-05-02] MEDS ORDERED: FENTANYL PF 100 MCG/2ML IV PRN (07:30)
[2017-05-02 08:28] VITALS: BP 147/47
[2017-05-02] MEDS: METOPROLOL TARTRATE 100 MG TABLET PO SCH ×2 (08:33→22:02)
[2017-05-02] MEDS: TAMSULOSIN 0.4 MG CAP.ER.24H PO SCH (08:33)
[2017-05-02] MEDS: POTASSIUM CHLORIDE 8 MEQ TABLET.ER PO SCH (08:33)
[2017-05-02 14:00] VITALS: BP 109/69
[2017-05-02 17:05] LABS: INTERNATIONAL NORMALIZED RATIO 1.03 (0.93-1.1); PROTHROMBIN TIME 10.6 Seconds (9.6-11.5)
[2017-05-02] MEDS: DIGOXIN 0.25 MG TABLET PO SCH (17:23)
[2017-05-02] MEDS ORDERED: WARFARIN 7.5 MG TABLET PO-COUM ONE (18:00)
[2017-05-02 19:20] VITALS: BP 116/69
[2017-05-03] MEDS: OXYcodone/APAP 7.5/325MG TABLET PO PRN (01:33)
[2017-05-03 01:50] VITALS: BP 135/80
[2017-05-03 05:34] LABS: INTERNATIONAL NORMALIZED RATIO 1.04 (0.93-1.1); PROTHROMBIN TIME 10.7 Seconds (9.6-11.5)
[2017-05-03 05:38] LABS: BASOPHILS # (AUTO) 0.01 x10^3/uL (0-0.1); BASOPHILS % (AUTO) 0 % (0-1); EOSINOPHILS % (AUTO) 1 % (1-7); LYMPHOCYTES # (AUTO) 0.85 x10^3/uL (1-3.4); LYMPHOCYTES % (AUTO) 11 % (22-44); MD NO; MEAN CORPUSCULAR HEMOGLOBIN 28.7 pg (27.5-34.5); MEAN CORPUSCULAR HGB CONC 33.3 g/dL (33.2-36.2); MEAN CORPUSCULAR VOLUME 86.3 fL (81-97); MEAN PLATELET VOLUME 8.2 fL (7.4-10.4); MONOCYTES # (AUTO) 0.77 x10^3/uL (0.2-0.8); MONOCYTES % (AUTO) 10 % (2-9); NEUTROPHILS # (AUTO) 6.03 x10^3/uL (1.8-6.8); NEUTROPHILS % (AUTO) 78 % (42-75); PLATELET COUNT 280 x10^3/uL (130-400); RED BLOOD COUNT 3.52 x10^6/uL (4.38-5.82); RED CELL DISTRIBUTION WIDTH 15.8 % (9.4-14.8)
[2017-05-03 05:44] LABS: CHLORIDE 108 mmol/L (98-107)
[2017-05-03 05:56] LABS: ANION GAP 6 mmol/L (5-15); CALCIUM 8.4 mg/dL (8.5-10.1)
[2017-05-03 08:12] VITALS: BP 139/82
[2017-05-03] MEDS: POTASSIUM CHLORIDE 8 MEQ TABLET.ER PO SCH (08:56)
[2017-05-03] MEDS: TAMSULOSIN 0.4 MG CAP.ER.24H PO SCH (08:56)
[2017-05-03] MEDS: METOPROLOL TARTRATE 100 MG TABLET PO SCH ×2 (09:00→21:41)
[2017-05-03 14:45] VITALS: BP 121/77
[2017-05-03] MEDS: VANCOMYCIN 1,600 MG in SODIUM CHLORIDE 0.9% 250 ML IV SCH (16:36)
[2017-05-03] MEDS: DIGOXIN 0.25 MG TABLET PO SCH (16:36)
[2017-05-03] MEDS ORDERED: WARFARIN 10 MG TABLET PO-COUM ONE (18:00)
[2017-05-03 18:47] VITALS: BP 116/73
[2017-05-04 02:44] VITALS: BP 139/83
[2017-05-04 05:43] LABS: INTERNATIONAL NORMALIZED RATIO 1.12 (0.93-1.1); PROTHROMBIN TIME 11.5 Seconds (9.6-11.5)
[2017-05-04 06:37] VITALS: BP 123/78
[2017-05-04] MEDS: TAMSULOSIN 0.4 MG CAP.ER.24H PO SCH (08:37)
[2017-05-04] MEDS: METOPROLOL TARTRATE 100 MG TABLET PO SCH (08:38)
[2017-05-04] MEDS: POTASSIUM CHLORIDE 8 MEQ TABLET.ER PO SCH (08:38)
[2017-05-04] MEDS: VANCOMYCIN 1,600 MG in SODIUM CHLORIDE 0.9% 250 ML IV SCH (11:46)
[2017-05-04 12:59] VITALS: BP 123/78
[2017-05-04] MEDS ORDERED: DIGO250T PO (14:31)
[2017-05-04] MEDS ORDERED: OXYC1TAB8 PO (14:31)
[2017-05-04] MEDS ORDERED: TAMS-11 PO (14:31)
[2017-05-04] MEDS ORDERED: AMOX1TAB12 PO (14:38)
[2017-05-04] MEDS ORDERED: METO-99 PO (14:49)
[2017-05-04] MEDS ORDERED: IBUP-1222 PO (16:01)
[2017-05-04] MEDS ORDERED: WARFARIN 7.5 MG TABLET PO-COUM SCH (18:00)
== END 2017-05-04 17:04 | disposition home or self-care (01) | DRG 350 ==
LOC: ED 22:04 → EDIP 23:58 → 4WST 04-26 02:49 → DCLOUNGE 05-04 16:18
PROVIDERS: ADMIT Surgery; ATTEND Surgery
PROC: 30233L1 Transfusion of Nonautologous Fresh Plasma into Peripheral Vein, Percutaneous Approach (ICD-10-PCS; principal; 2017-04-26)
PROC: 30233K1 Transfusion of Nonautologous Frozen Plasma into Peripheral Vein, Percutaneous Approach (ICD-10-PCS; 2017-04-26)
PROC: 0YQ50ZZ Repair Right Inguinal Region, Open Approach (ICD-10-PCS; 2017-04-28)
PROC: 0YJ54ZZ Inspection of Right Inguinal Region, Percutaneous Endoscopic Approach (ICD-10-PCS; 2017-04-28)
PROC: 0J9K0ZZ Drainage of Left Hand Subcutaneous Tissue and Fascia, Open Approach (ICD-10-PCS; 2017-05-02)
DX: K40.90 Unilateral inguinal hernia, without obstruction or gangrene, not specified as recurrent (principal); I50.43 Acute on chronic combined systolic (congestive) and diastolic (congestive) heart failure; N17.9 Acute kidney failure, unspecified; K56.600 Partial intestinal obstruction, unspecified as to cause; D68.59 Other primary thrombophilia; E44.1 Mild protein-calorie malnutrition; E83.39 Other disorders of phosphorus metabolism; I13.0 Hypertensive heart and chronic kidney disease with heart failure and stage 1 through stage 4 chronic kidney disease, or unspecified chronic kidney disease; G25.81 Restless legs syndrome; I48.91 Unspecified atrial fibrillation; E83.42 Hypomagnesemia; K40.31 Unilateral inguinal hernia, with obstruction, without gangrene, recurrent; N32.0 Bladder-neck obstruction; D64.9 Anemia, unspecified; K80.20 Calculus of gallbladder without cholecystitis without obstruction; E78.00 Pure hypercholesterolemia, unspecified; E78.5 Hyperlipidemia, unspecified; G89.29 Other chronic pain; I25.10 Atherosclerotic heart disease of native coronary artery without angina pectoris; I08.0 Rheumatic disorders of both mitral and aortic valves; L03.012 Cellulitis of left finger; N18.9 Chronic kidney disease, unspecified; N40.0 Benign prostatic hyperplasia without lower urinary tract symptoms; T45.515A Adverse effect of anticoagulants, initial encounter; Z53.31 Laparoscopic surgical procedure converted to open procedure; Z66 Do not resuscitate; Z79.01 Long term (current) use of anticoagulants; Z79.82 Long term (current) use of aspirin; Z79.899 Other long term (current) drug therapy; Z86.010 Personal history of colon polyps; Z68.24 Body mass index [BMI] 24.0-24.9, adult
CPT/HCPCS: 36415; 74022; 74176; 80048; 80053; 80162; 80307; 81001; 82962; 83690; 83735; 84100; 84484; 85025; 85610; 85730; 86850; 86900; 87070; 87075; 87077; 87086; 87186; 87205; 93005; 93306; 99285; J0171; J0690; J1100; J1815; J2250; J2405; J2704; J2710; J3010; J3370; J3430; J3490; C1727; C1781; G0479; J0330; J1160; J2370; J3475; J7030; J7040; J7050; P9017

== ENCOUNTER 2017-11-20 20:44 | Emergency (ER) | payer MEDICARE ==
[~2017-11-20] VITALS: Ht 175.3 cm; Wt 80.0 kg
[~2017-11-20 20:44] MED LIST changes: +AMOX1TAB12 PO; +IBUP-1222 PO; -METF500T4 PO; +METF500T5 PO; +OXYC1TAB8 PO; +TAMS-11 PO; +WARF-36 PO; +WARF-36 PO-COUM; -WARF5TAB7 PO; -WARF5TAB7 PO-COUM; +WARF7.5T46 PO; -WARF7.5T6 PO
[2017-11-20 20:47] VITALS: BP 137/77
== END 2017-11-20 22:16 | disposition home or self-care (01) ==
LOC: ED 21:45
DX: G89.11 Acute pain due to trauma (principal); M25.522 Pain in left elbow; M25.552 Pain in left hip; E78.5 Hyperlipidemia, unspecified; E78.00 Pure hypercholesterolemia, unspecified; I25.10 Atherosclerotic heart disease of native coronary artery without angina pectoris; I10 Essential (primary) hypertension; I48.91 Unspecified atrial fibrillation; Y04.8XXA Assault by other bodily force, initial encounter; Y93.89 Activity, other specified; Y99.8 Other external cause status; Y92.410 Unspecified street and highway as the place of occurrence of the external cause
CPT/HCPCS: 99284

== ENCOUNTER 2017-12-01 02:11 | Emergency (ER) | payer MEDICARE ==
[~2017-12-01] VITALS: Ht 175.3 cm; Wt 80.3 kg
[2017-12-01 02:15] VITALS: BP 125/78
== END 2017-12-01 03:47 | disposition home or self-care (01) ==
LOC: ED 03:20
DX: S76.012A Strain of muscle, fascia and tendon of left hip, initial encounter (principal); I48.91 Unspecified atrial fibrillation; E78.00 Pure hypercholesterolemia, unspecified; I11.0 Hypertensive heart disease with heart failure; I50.9 Heart failure, unspecified; I48.92 Unspecified atrial flutter; I25.10 Atherosclerotic heart disease of native coronary artery without angina pectoris; W50.0XXA Accidental hit or strike by another person, initial encounter; Y93.89 Activity, other specified; Y92.098 Other place in other non-institutional residence as the place of occurrence of the external cause; Y99.8 Other external cause status
CPT/HCPCS: 99283

== ENCOUNTER → 2019-04-18 | Outpatient (CLI) | payer MEDICARE, MEDICAID ==
[~2019-04-18] MED LIST changes: -ASPI-621 PO; +ASPI81TA45 PO; +METF500T17 PO; -METF500T5 PO
== END | disposition home or self-care (01) ==
LOC: CFH 07:41
PROVIDERS: ATTEND Internal Medicine
DX: I08.0 Rheumatic disorders of both mitral and aortic valves (principal); I25.2 Old myocardial infarction; I48.91 Unspecified atrial fibrillation; F12.90 Cannabis use, unspecified, uncomplicated
CPT/HCPCS: 93306

== ENCOUNTER 2020-02-15 00:02 | Emergency (ER) | payer MEDICARE, MEDICAID ==
[~2020-02-15] VITALS: Ht 170.2 cm; Wt 82.6 kg
[~2020-02-15 00:02] MED LIST changes: -DIGO125T PO; +DIGO125T85 PO; -DIGO250T PO; +DIGO250T3 PO; +SIMV20TA19 PO; -SIMV20TA3 PO; -WARF5TAB PO; +WARF5TAB2 PO
[2020-02-15 00:06] VITALS: BP 116/77
--- NOTE | 2020-02-15 00:19 | NUR ---
PATIENT AMBULATORY WITH STEADY GAIT TO ROOM, STATES "I SHOULD BE MR. CLEAN FOR HALLOWEEN, THAT WOULD BE A GOOD COSTUME", MAKING RAMBLING SPEECH ABOUT DIFFERENT TOPICS. MARCOS COOPERATIVE, STAYING ON GURNEY AND IN ROOM
--- NOTE | 2020-02-15 00:23 | NUR ---
ERP IN ROOM FOR EVAL
[2020-02-15] MEDS ORDERED: SULFAMETH./TRIMETHOPRIM DS 800MG/160MG TABLET PO ONE (00:30)
[2020-02-15] MEDS ORDERED: SULFAMETH./TRIMETHOPRIM DS 800MG/160MG TABLET ONE (00:35)
--- NOTE | 2020-02-15 00:46 | NUR ---
Patient given discharge instructions and they have confirmed that they understand the instructions. Patient ambulatory with steady gait.
== END 2020-02-15 00:48 | disposition home or self-care (01) ==
LOC: ED 00:32
DX: S60.222A Contusion of left hand, initial encounter (principal); L02.212 Cutaneous abscess of back [any part, except buttock and flank]; E78.00 Pure hypercholesterolemia, unspecified; I48.91 Unspecified atrial fibrillation; I11.0 Hypertensive heart disease with heart failure; I50.9 Heart failure, unspecified; X58.XXXA Exposure to other specified factors, initial encounter; Y93.89 Activity, other specified; Y92.89 Other specified places as the place of occurrence of the external cause; Y99.8 Other external cause status
CPT/HCPCS: 10060; 99283

== ENCOUNTER 2020-07-30 02:24 | Emergency (ER) | payer MEDICARE ==
[~2020-07-30] VITALS: Ht 170.2 cm; Wt 80.0 kg
[2020-07-30 02:26] VITALS: BP 109/54
== END 2020-07-30 03:08 | disposition home or self-care (01) ==
LOC: ED 03:06
DX: K40.91 Unilateral inguinal hernia, without obstruction or gangrene, recurrent (principal); R10.2 Pelvic and perineal pain; R20.0 Anesthesia of skin; I48.91 Unspecified atrial fibrillation; I11.0 Hypertensive heart disease with heart failure; I50.9 Heart failure, unspecified; E78.00 Pure hypercholesterolemia, unspecified
CPT/HCPCS: 99281

== ENCOUNTER → 2020-09-07 | Outpatient (CLI) | payer MEDICARE | END | disposition home or self-care (01) | LOC: CFH 08:43 → EDSTATUS 08:45 | PROVIDERS: ATTEND Surgery | DX: K40.90 Unilateral inguinal hernia, without obstruction or gangrene, not specified as recurrent (principal) | CPT/HCPCS: 76857 ==

== ENCOUNTER 2020-11-03 00:53 | Emergency (ER) | payer MEDICARE ==
[~2020-11-03] VITALS: Ht 170.2 cm; Wt 75.0 kg
[2020-11-03] MEDS ORDERED: LIDOCAINE-MPF 1%, 5ML INFIL ONE (02:30)
--- NOTE | 2020-11-03 02:54 | NUR ---
PLATE FORMER: PT. TO ROOM FROM LOBBY AT THIS TIME.
--- NOTE | 2020-11-03 03:03 | NUR ---
pt c/o of abscess on right hand index finger. nadn, vss, pa at bedside for I&D
[2020-11-03 03:36] VITALS: BP 111/71
--- NOTE | 2020-11-03 03:46 | NUR ---
Patient/Caregiver given discharge instructions and they have confirmed that they understand the instructions. Patient ambulatory with steady gait with cane. NAD, all questions answered appropriately, denies additional needs at this time. No personal belongings left in room after discharge.
== END 2020-11-03 03:48 | disposition home or self-care (01) ==
LOC: ED 03:02
DX: L03.011 Cellulitis of right finger (principal); I50.9 Heart failure, unspecified; I25.10 Atherosclerotic heart disease of native coronary artery without angina pectoris; I48.92 Unspecified atrial flutter; E78.5 Hyperlipidemia, unspecified
CPT/HCPCS: 10060; 99283